=== PATIENT | female | born 1970 | race Caucasian/White ===

== ENCOUNTER 2018-02-14 09:26 | Emergency (ER) | payer OTHER ==
[~2018-02-14] VITALS: Ht 167.6 cm; Wt 147.4 kg
[~2018-02-14 09:26] MED LIST: CYMBALTA20 MG PO; FLEXERIL PO; NORCO 5-325 TA1 EACH PO; PROPRANOLOL 1010 M1 PO; SYNTHROID25 MCG PO; TRAMADOL 50 MG50 MG PO; XANAX 0.5 MG0.5 MG PO
[2018-02-14] MEDS ORDERED: DIOVAN 80 MG TA80 M1 PO (09:33)
[2018-02-14 09:52] LABS: URINE BILIRUBIN NEGATIVE (Negative); URINE BLOOD NEGATIVE (Negative); URINE CLARITY CLEAR; URINE COLOR YELLOW; URINE GLUCOSE-RANDOM NEGATIVE (Negative); URINE KETONES NEGATIVE (Negative); URINE LEUKOCYTES-REFLEX NEGATIVE (Negative); URINE NITRITE-REFLEX NEGATIVE (Negative); URINE PROTEIN NEGATIVE (Negative); URINE UROBILINOGEN 0.2 E.U./dl (0.2-1.0)
[2018-02-14 10:09] LABS: ABSOLUTE BASOPHILS 0.1 thou/uL (0.0-0.2); ABSOLUTE EOSINOPHILS 0.3 thou/uL (0.0-0.7); ABSOLUTE LYMPHOCYTES 3.1 thou/uL (0.8-5.3); ABSOLUTE MONOCYTES 0.4 thou/uL (0.0-1.2); ABSOLUTE NEUTROPHILS 5.6 thou/uL (1.6-8.1); BASOPHILS 1.4 %; EOSINOPHILS 2.6 %; HEMOGLOBIN 13.4 gm/dL (12.0-15.0); LYMPHOCYTES 32.4 %; MCH 27.6 pg (26.0-34.0); MCHC 33.4 g/dL (28.0-37.0); MCV 82.5 fL (80.0-100.0); MONOCYTES 4.7 %; MPV 7.1 fl. (7.2-11.1); NUCLEATED RBCS 0 /100WBC; PLATELET COUNT* 421 thou/uL (150-400); POLYS 58.9 %; RBC 4.86 mil/uL (4.20-5.00); WBC 9.5 thou/uL (4.0-11.0)
[2018-02-14 10:17] LABS: APTT 30.3 Seconds (25.0-31.3)
[2018-02-14 10:26] LABS: ANION GAP 4 mmol/L (7-16); BUN 14 mg/dL (7-18); CALCIUM 8.9 mg/dL (8.5-10.1); CHLORIDE 104 mmol/L (98-107); CO2 33 mmol/L (21-32); CREATININE 0.9 mg/dL (0.6-1.3); GLUCOSE 127 mg/dL (70-99); POTASSIUM 4.7 mmol/L (3.5-5.1); SODIUM 141 mmol/L (136-145)
[2018-02-14 10:37] LABS: ALBUMIN 3.1 g/dL (3.4-5.0); ALKALINE PHOSPHATASE 97 U/L (46-116); NT-PRO BRAIN NAT PEPTIDE 21 pg/mL (<300); SGOT 36 U/L (15-37); SGPT 39 U/L (30-65); TOTAL BILIRUBIN 0.2 mg/dL (<0.1-1.0); TOTAL PROTEIN 7.8 g/dL (6.4-8.2); TROPONIN-I LEVEL <0.06 ng/mL (<0.06)
[2018-02-14 10:47] VITALS: BP 144/96
--- NOTE | 2018-02-14 15:46 | EKG ---
[place] [address] ELECTROCARDIOGRAM REPORT Name: HUNTER MARIE Room: [facility]#: [id number] Admission: 02/14/18 Attend Phys: Discharge: 02/14/18 Date of : 74 Report #: [id number] THIS REPORT FOR: //name// 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 : 1970 Requested By: Lonnie Wade Order Number: [id number] MD: Nino Cates Measurements Intervals [place] Rate: 71 P: 32 [place]: 147 QRS: 8 QRSD: 113 T: 30 QT: 403 QTc: 438 Interpretive Statements Sinus rhythm Borderline intraventricular conduction delay Abnormal R-wave progression, early transition Abnormal T, consider ischemia, anterior leads Compared to ECG 09/11/2017 10:37:14 no change Electronically Signed On 02-14-2018 15:46:49 CDT by Nino Cates [email or web address] <ELECTRONICALLY SIGNED> By: Nino Cates MD, [facility] 02/14/18 1546 0936 0936 Nino Cates MD, [facility] /EPI
== END 2018-02-14 10:48 | disposition home or self-care (01) ==
LOC: M.ERS 09:26
PROVIDERS: Family Medicine
DX: I10 Essential (primary) hypertension (principal); F41.9 Anxiety disorder, unspecified; F32.9 Major depressive disorder, single episode, unspecified; Z90.89 Acquired absence of other organs; Z90.49 Acquired absence of other specified parts of digestive tract

== ENCOUNTER 2018-07-20 18:05 | Emergency (ER) | payer OTHER ==
[~2018-07-20] VITALS: Ht 167.6 cm; Wt 141.5 kg
[~2018-07-20 18:05] MED LIST changes: +DIOVAN 80 MG TA80 M1 PO
[2018-07-20] MEDS ORDERED: NORVASC5 MG PO (18:19)
[2018-07-20] MEDS ORDERED: PROZAC10 MG PO (18:20)
[2018-07-20] MEDS ORDERED: OMEPRAZOLE 20 M20 M1 PO (18:20)
[2018-07-20 18:23] LABS: URINE BILIRUBIN NEGATIVE (Negative); URINE BLOOD NEGATIVE (Negative); URINE CLARITY CLEAR; URINE COLOR YELLOW; URINE GLUCOSE-RANDOM NEGATIVE (Negative); URINE KETONES NEGATIVE (Negative); URINE LEUKOCYTES-REFLEX NEGATIVE (Negative); URINE NITRITE-REFLEX NEGATIVE (Negative); URINE PROTEIN NEGATIVE (Negative); URINE SPECIFIC GRAVITY <= 1.005 (1.005-1.030); URINE UROBILINOGEN 0.2 E.U./dl (0.2-1.0)
[2018-07-20 18:35] LABS: ABSOLUTE BASOPHILS 0.2 thou/uL (0.0-0.2); ABSOLUTE EOSINOPHILS 0.3 thou/uL (0.0-0.7); ABSOLUTE LYMPHOCYTES 4.9 thou/uL (0.8-5.3); ABSOLUTE MONOCYTES 0.5 thou/uL (0.0-1.2); BASOPHILS 1.5 %; EOSINOPHILS 2.7 %; HEMOGLOBIN 13.2 gm/dL (12.0-15.0); LYMPHOCYTES 41.5 %; MCH 27.5 pg (26.0-34.0); MCV 83.4 fL (80.0-100.0); MPV 6.8 fl. (7.2-11.1); NUCLEATED RBCS 0 /100WBC; PLATELET COUNT* 512 thou/uL (150-400); POLYS 50.3 %; WBC 11.9 thou/uL (4.0-11.0)
[2018-07-20 18:40] LABS: CALCIUM 8.3 mg/dL (8.5-10.1); CREATININE 0.8 mg/dL (0.6-1.3); POTASSIUM 3.8 mmol/L (3.5-5.1)
[2018-07-20 18:45] LABS: TOTAL BILIRUBIN 0.2 mg/dL (<0.1-1.0); TOTAL PROTEIN 7.9 g/dL (6.4-8.2)
[2018-07-20] MEDS ORDERED: NORCO 5-325 TA1 EACH PO (19:28)
[2018-07-20] MEDS ORDERED: CYCLOBENZAPRINE10 MG PO (19:29)
[2018-07-20 19:48] VITALS: BP 170/102
== END 2018-07-20 19:49 | disposition home or self-care (01) ==
LOC: M.ERS 18:05
PROVIDERS: Nurse Practitioner Family
DX: M54.5 Low back pain (principal); R10.9 Unspecified abdominal pain; I10 Essential (primary) hypertension; F41.9 Anxiety disorder, unspecified; F32.9 Major depressive disorder, single episode, unspecified; Z90.49 Acquired absence of other specified parts of digestive tract; Z90.710 Acquired absence of both cervix and uterus; Z91.013 Allergy to seafood

== ENCOUNTER → 2018-10-25 | Day surgery (SDC) | payer OTHER ==
[~2018-10-25] MED LIST changes: +CYCLOBENZAPRINE10 MG PO; +NORVASC5 MG PO; +OMEPRAZOLE 20 M20 M1 PO; +PROZAC10 MG PO
--- NOTE | ~2018-10-25 | PROC ---
[address] [address] PROCEDURE REPORT Name: HUNTER MARIE Room: [facility].#: [id number] Admission: 10/25/18 Attend Phys: Lydia Dao MD Discharge: Date of : 74 Report #: [id number] THIS REPORT FOR: //name// For GI report, please see the Provation report in Perceptive 7. By: 0637Medical Records Staff SANJU /EDINSON
[2018-10-25 09:20] LABS: MCH 27.8 pg (26.0-34.0); MCHC 33.3 g/dL (28.0-37.0); MCV 83.5 fL (80.0-100.0); MPV 7.1 fl. (7.2-11.1); RBC 4.68 mil/uL (4.20-5.00); RDW-CV 15.6 % (10.5-14.5); WBC 10.5 thou/uL (4.0-11.0)
[2018-10-25 09:24] LABS: CALCIUM 8.9 mg/dL (8.5-10.1); CREATININE 0.9 mg/dL (0.6-1.3); POTASSIUM 3.3 mmol/L (3.5-5.1)
--- NOTE | 2018-10-25 15:48 | EKG ---
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: : 1970 Requested By: Lydia Dao Order Number: [id number] Nuno MD: Nino Cates Measurements Intervals [place] Rate: 78 P: 35 [place]: 161 QRS: 6 QRSD: 117 T: 16 QT: 400 QTc: 456 Interpretive Statements Sinus rhythm Probable left ventricular hypertrophy Abnormal T, consider ischemia, anterior leads Compared to ECG 02/14/2018 09:36:14 No significant changes Electronically Signed On 10-25-2018 15:48:19 SYSTEMS SUPPORT ENGINEER by Nino Cates [email or web address] <ELECTRONICALLY SIGNED> By: Nino Cates MD, [facility] 10/25/18 1548 0 0 Nino Cates MD, FAC /EPI
--- NOTE | 2018-10-30 11:08 | PATH ---
[address] [address] PATHOLOGY RPT PROCEDURE Name: MILA TO Room: [facility].#: [id number] Admission: 10/25/18 Date of : 74 Discharge: Report #: [id number] Path Case #: [id number] [facility] Accession Number: [id number] . 01 Material submitted: . PART A: ANTRAL BIOPSY PART B: RECTAL SIGMOID POLYP . 01 Clinical history: . Pre-OP DX: History of breast cancer, upper quadrant pain, bright red blood per Post-OP DX: Rectum, dysphasis, vomiting . 02 Diagnosis: A. "Antral biopsy for gastritis", biopsy: - Gastric antral-type mucosa with mild reactive changes and mild chronic inflammation. - Negative H. pylori immunohistochemical stain (block A1); control reacted appropriately. . B. "Rectal/sigmoid polyp", biopsy: - Tubular adenoma; no high grade dysplasia. . (CLW:osmany; 10/26/2018) MBR/10/26/2018 . 02 Comment: A properly controlled immunohistochemical stain was performed. . AE1/AE3 (block A1): no abnormal staining . Clinical and endoscopic correlation is recommended. . 02 Electronically signed: . Gloria Daniel MD, Pathologist NPI- [id number] . 01 Gross description: . A. Received in formalin labeled "Mila To, antral biopsy for gastritis," are 3 segments of eastman soft tissue measuring 0.6 x 0.4 x 0.1 cm in aggregate dimensions and ranging from 0.2 to 0.3 cm in maximum dimension. The specimen is submitted entirely in cassette A1. . B. Received in formalin labeled "Mila To, rectal/sigmoid polyp," is a single segment of eastman soft tissue measuring 0.4 cm in maximum dimension. The specimen is entirely submitted in cassette B1. (TSD; 10/25/2018) TOB/[place] [address] PATHOLOGY RPT PROCEDURE Name: MILA TO PRASHANTH Room: [facility].#: [id number] Admission: 10/25/18 Date of : 74 Discharge: Report #: [id number] Path Case #: [id number] . 02 Pathologist provided ICD-10: K29.50, D12.7 . 02 CPT . 144953, 088951, O27654, X71767 Specimen Comment: A courtesy copy of this report has been sent to Specimen Comment: [phone], . Specimen Comment: Report sent to / DR THOMAS Specimen Comment: A duplicate report has been generated due to demographic updates. Performed at: 01 [facility] [address] [id number] MD Aureliano Vinson MD Phone: [phone] Performed at: 02 [facility] [address] [id number] MD João Graf MD Phone: [phone]
== END | disposition home or self-care (01) ==
LOC: M.SUR 06:46
PROVIDERS: Internal Medicine Gastroenterology
DX: D12.7 Benign neoplasm of rectosigmoid junction (principal); K29.50 Unspecified chronic gastritis without bleeding; K44.9 Diaphragmatic hernia without obstruction or gangrene; K64.8 Other hemorrhoids; I10 Essential (primary) hypertension; M79.7 Fibromyalgia; K21.9 Gastro-esophageal reflux disease without esophagitis; F41.9 Anxiety disorder, unspecified; F32.9 Major depressive disorder, single episode, unspecified; Z90.49 Acquired absence of other specified parts of digestive tract; Z98.890 Other specified postprocedural states; Z79.899 Other long term (current) drug therapy

== ENCOUNTER → 2020-08-28 | Outpatient (CLI) | payer MEDICARE, OTHER ==
[~2020-08-28] MED LIST changes: +IBU600 MG PO; +NORCO 5-325 TA1 EAC2 PO
== END ==
LOC: M.ULTRA 07:59
PROVIDERS: ATTEND Family Medicine
DX: R22.0 Localized swelling, mass and lump, head (principal)

== ENCOUNTER 2020-09-02 16:57 | Emergency (ER) | payer MEDICARE, OTHER ==
[~2020-09-02] VITALS: Ht 167.6 cm; Wt 147.4 kg
[~2020-09-02 16:57] MED LIST changes: -IBU600 MG PO; -NORCO 5-325 TA1 EAC2 PO
[2020-09-02] MEDS ORDERED: IBU600 MG PO (18:09)
[2020-09-02] MEDS ORDERED: NORCO 5-325 TA1 EAC2 PO (18:09)
[2020-09-02 18:21] VITALS: BP 162/63
== END 2020-09-02 18:21 | disposition home or self-care (01) ==
LOC: M.ERS 16:57
DX: S63.681A Other sprain of right thumb, initial encounter (principal); I10 Essential (primary) hypertension; M79.7 Fibromyalgia; Z90.89 Acquired absence of other organs; Z90.49 Acquired absence of other specified parts of digestive tract; Z90.710 Acquired absence of both cervix and uterus; Z91.013 Allergy to seafood; W18.39XA Other fall on same level, initial encounter; Y93.89 Activity, other specified; Y92.89 Other specified places as the place of occurrence of the external cause; Y99.8 Other external cause status

== ENCOUNTER → 2020-09-11 | Outpatient (CLI) | payer MEDICARE, OTHER ==
[~2020-09-11] MED LIST changes: +IBU600 MG PO; +NORCO 5-325 TA1 EAC2 PO
== END ==
LOC: M.CT 08:31
PROVIDERS: ATTEND Family Medicine
DX: J84.10 Pulmonary fibrosis, unspecified (principal); R91.1 Solitary pulmonary nodule; I25.10 Atherosclerotic heart disease of native coronary artery without angina pectoris; J98.4 Other disorders of lung; K76.0 Fatty (change of) liver, not elsewhere classified

== ENCOUNTER 2020-10-23 11:06 | Emergency (ER) | payer MEDICARE, OTHER ==
[~2020-10-23] VITALS: Ht 167.6 cm; Wt 147.4 kg
[2020-10-23] MEDS ORDERED: LIPITOR 10 MG10 M1 PO (11:22)
[2020-10-23] MEDS ORDERED: OXYBUTYNIN 5 MG5 M2 PO (11:22)
[2020-10-23 11:23] LABS: URINE BILIRUBIN NEGATIVE (Negative); URINE BLOOD 3+ (Negative); URINE CLARITY CLOUDY; URINE COLOR STRAW; URINE GLUCOSE-RANDOM NEGATIVE (Negative); URINE KETONES NEGATIVE (Negative); URINE PROTEIN 2+ (Negative); URINE UROBILINOGEN 0.2 E.U./dl (0.2-1.0)
[2020-10-23 11:26] LABS: URINE LEUKOCYTES-REFLEX 3+ (Negative); URINE NITRITE-REFLEX POSITIVE (Negative)
[2020-10-23 11:30] LABS: BACTERIA-REFLEX >30 Many /HPF (None Seen); CASTS None Seen /LPF (None Seen); CRYSTALS None Seen /LPF (None Seen); SQUAMOUS 4-10 Moderate /LPF (0-3); TRANSITIONAL EPITHEL CELL 0-3 Few /LPF (None Seen); URINE RBC >20 Many /HPF (0-2); URINE WBC-REFLEX >25 Many /HPF (0-5)
[2020-10-23 11:34] LABS: ABSOLUTE EOSINOPHILS 0.3 thou/uL (0.0-0.7); ABSOLUTE LYMPHOCYTES 4.5 thou/uL (0.8-5.3); ABSOLUTE MONOCYTES 0.7 thou/uL (0.0-1.2); ABSOLUTE NEUTROPHILS 10.7 thou/uL (1.6-8.1); BASOPHILS 0.2 %; HEMATOCRIT 39.3 % (37.0-47.0); HEMOGLOBIN 12.5 gm/dL (12.0-15.0); LYMPHOCYTES 27.6 %; MCH 25.4 pg (26.0-34.0); MCHC 31.9 g/dL (28.0-37.0); MCV 79.7 fL (80.0-100.0); MONOCYTES 4.2 %; MPV 6.6 fl. (7.2-11.1); NUCLEATED RBCS 0 /100WBC; PLATELET COUNT* 520 thou/uL (150-400); RBC 4.93 mil/uL (4.20-5.00); RDW-CV 17.4 % (10.5-14.5); WBC 16.2 thou/uL (4.0-11.0)
[2020-10-23 11:41] LABS: CALCIUM 8.3 mg/dL (8.5-10.1); POTASSIUM 4.2 mmol/L (3.5-5.1)
[2020-10-23 11:45] LABS: TOTAL BILIRUBIN 0.7 mg/dL (<0.1-1.0)
[2020-10-23] MEDS ORDERED: MACROBID 100 M100 M1 PO (11:50)
[2020-10-23] MEDS ORDERED: PYRIDIUM200 MG PO (11:50)
[2020-10-23] MEDS ORDERED: NORCO 5-325 TA1 EAC2 PO (12:00)
[2020-10-23 12:10] VITALS: BP 128/41
== END 2020-10-23 12:10 | disposition home or self-care (01) ==
LOC: M.ERS 11:06
PROVIDERS: Family Medicine
DX: N39.0 Urinary tract infection, site not specified (principal); I10 Essential (primary) hypertension; M79.7 Fibromyalgia; Z90.710 Acquired absence of both cervix and uterus; Z91.013 Allergy to seafood; Z90.89 Acquired absence of other organs; Z90.49 Acquired absence of other specified parts of digestive tract

== ENCOUNTER → 2021-01-11 | Outpatient (CLI) | payer MEDICARE, OTHER ==
[~2021-01-11] MED LIST changes: +LIPITOR 10 MG10 M1 PO; +MACROBID 100 M100 M1 PO; +OXYBUTYNIN 5 MG5 M2 PO; +PYRIDIUM200 MG PO
== END ==
LOC: M.CT 01-07 08:30
PROVIDERS: ATTEND Family Medicine
DX: R91.8 Other nonspecific abnormal finding of lung field (principal)

== ENCOUNTER → 2021-08-03 | Outpatient (CLI) | payer MEDICARE, OTHER | LOC: M.CT 07-21 14:00 | PROVIDERS: ATTEND Family Medicine | DX: J98.4 Other disorders of lung (principal); R91.8 Other nonspecific abnormal finding of lung field; M47.814 Spondylosis without myelopathy or radiculopathy, thoracic region; Z90.49 Acquired absence of other specified parts of digestive tract ==

== ENCOUNTER → 2021-11-09 | Day surgery (SDC) | payer MEDICARE, OTHER ==
[~2021-11-09] MED LIST changes: +PROZAC20 M1 PO; +XANAX 0.25 MG0.25 MG PO
--- NOTE | ~2021-11-09 | PROC ---
[address] [address] PROCEDURE REPORT Name: HUNTER MARIE Room: [facility].#: [id number] Admission: 11/09/21 Attend Phys: Thee Parker DO Discharge: Date of : 74 Report #: [id number] THIS REPORT FOR: cc: Yaakov Henning Vincent R. DO TAMRA,Medical Records Staff ~ For GI report, please see the Provation report in Perceptive 7 content. By: 1408Medical Records Staff SANJU /EDINSON
--- NOTE | 2021-11-09 15:41 | EKG ---
[place] [address] ELECTROCARDIOGRAM REPORT Name: KELLI MARIEAlpesh MARTINEZPRASHANTH Room: [facility]#: [id number] Admission: 11/09/21 Attend Phys: Thee Parker, Discharge: Date of : 74 Date of Service: 11/09/21 [facility] [place] [facility] [place] Report #: [id number] THIS REPORT FOR: //name// [facility] Test Date: 2021-11-09 Test Time: 10:02:30 Pat Name: HUNTER MARIE Department: Room: Gender: F [place]: SCELMER : 1970 Requested By: Thee Parker Order Number: [id number] Reading MD: Johan Antunez Measurements Intervals [place] Rate: 68 P: 39 [place]: 163 QRS: 14 QRSD: 113 T: 27 QT: 410 QTc: 437 Interpretive Statements Sinus rhythm Anteroseptal infarct, age indeterminate cannot be excluded Baseline wander in lead(s) V4 Compared to ECG 10/25/2018 09:11:17 Myocardial infarct finding now possible T-wave abnormality has diminished Possible ischemia no longer present Electronically Signed On 11-09-2021 15:41:25 AEROBICS INSTRUCTOR by Johan Antunez [email or web address] <ELECTRONICALLY SIGNED> By: Johan Antunez MD, FACC 11/09/21 1541 1002 1002 Johan Antunez MD, FACC /EPI
--- NOTE | 2021-11-11 10:07 | PATH ---
[facility] [place] [address] [place] [address] PATHOLOGY RPT PROCEDURE Name: MILA TO Room: [facility].#: [id number] Admission: 11/09/21 Date of : 74 Discharge: Report #: [id number] Path Case #: [id number] [facility] Accession Number: [id number] . 01 Material submitted: . PART A: esophagus - ESOPHAGEAL BIOPSY AT 35 CM FOR DYSPHAGIA PART B: esophagus - ESOPHAGEAL BIOPSY AT 30 CM FOR DYSPHAGIA . 01 Clinical history: . EGD IN OR DYSPHAGIA . 02 Diagnosis: A. and B. Esophageal biopsy at 35 cm and at 30 cm: - Mild chronic esophagitis typical of reflux. See comment. (NADIYA:sunday; 11/10/2021) S 11/10/2021 1435 Local . 02 Comment: Eosinophils average less than 2/HPF in both specimens. (NADIYA:[facility]; 11/10/2021) . 02 Electronically signed: . Armando Rod MD, Pathologist NPI- [id number] . 01 Gross description: . A. The specimen is received in formalin, labeled "Mila To, esophageal biopsy at 35 cm". Received are 2 fragments of pale eastman tissue both measuring 0.3 cm in maximum dimensions. The specimen is entirely submitted in cassette A1. . B. The specimen is received in formalin, labeled "Mila To, esophageal biopsy at 30 cm". Received are 2 segments of pale eastman tissue measuring 0.2 and 0.5 cm in maximum dimensions. The specimen is entirely submitted in cassette B1. ([facility]; 11/09/2021) NRI/NRI 11/09/2021 2113 Local . 02 Pathologist provided ICD-10: K20.90 . 02 CPT . 558088, 774401 Specimen Comment: A courtesy copy of this report has been sent to [phone] Specimen Comment: [phone] Specimen Comment: Report sent to / [place] [address] PATHOLOGY RPT PROCEDURE Name: MILA TO PRASHANTH Room: [facility]..#: [id number] Admission: 11/09/21 Date of : 74 Discharge: Report #: [id number] Path Case #: [id number] Specimen Comment: A duplicate report has been generated due to demographic updates. Performed at: 01 [facility] [id number] [facility] [address], [place], [place] [id number] MD Oliver Swenson MD Phone: [phone] Performed at: [address] [facility] [address] [place], [place], [place] [id number] MD Armando Rod MD Phone: [phone]
== END | disposition home or self-care (01) ==
LOC: M.SUR 05:32
PROVIDERS: ATTEND Internal Medicine Gastroenterology
DX: R13.14 Dysphagia, pharyngoesophageal phase (principal); K22.2 Esophageal obstruction; K21.00 Gastro-esophageal reflux disease with esophagitis, without bleeding; K44.9 Diaphragmatic hernia without obstruction or gangrene; I10 Essential (primary) hypertension; F32.9 Major depressive disorder, single episode, unspecified; M79.7 Fibromyalgia; Z98.890 Other specified postprocedural states; Z79.899 Other long term (current) drug therapy; Z90.710 Acquired absence of both cervix and uterus; Z20.822 Contact with and (suspected) exposure to COVID-19

== ENCOUNTER 2021-12-06 10:22 | Emergency (ER) | payer MEDICARE, OTHER ==
[~2021-12-06] VITALS: Ht 167.6 cm; Wt 147.4 kg
[2021-12-06] MEDS ORDERED: OMEPRAZOLE40 MG PO (10:47)
[2021-12-06 11:35] LABS: ABSOLUTE BASOPHILS 0.2 thou/uL (0.0-0.2); ABSOLUTE EOSINOPHILS 0.2 thou/uL (0.0-0.7); ABSOLUTE LYMPHOCYTES 3.6 thou/uL (0.8-5.3); ABSOLUTE MONOCYTES 0.5 thou/uL (0.0-1.2); ABSOLUTE NEUTROPHILS 5.3 thou/uL (1.6-8.1); BASOPHILS 1.6 %; EOSINOPHILS 2.5 %; HEMATOCRIT 43.5 % (37.0-47.0); HEMOGLOBIN 14.4 gm/dL (12.0-15.0); LYMPHOCYTES 36.9 %; MCH 27.7 pg (26.0-34.0); MCV 83.7 fL (80.0-100.0); MONOCYTES 5.4 %; MPV 6.6 fl. (7.2-11.1); NUCLEATED RBCS 0 /100WBC; PLATELET COUNT* 443 thou/uL (150-400); POLYS 53.6 %; RDW-CV 15.1 % (10.5-14.5); WBC 9.8 thou/uL (4.0-11.0)
[2021-12-06 12:07] LABS: ALBUMIN 3.1 g/dL (3.4-5.0)
[2021-12-06 13:15] LABS: MAGNESIUM 2.3 mg/dL (1.8-2.4); TOTAL BILIRUBIN 0.3 mg/dL (<0.1-1.0); TOTAL PROTEIN 7.7 g/dL (6.4-8.2)
[2021-12-06] MEDS ORDERED: CARAFATE1 GM PO (15:53)
[2021-12-06] MEDS ORDERED: ZOFRAN ODT4 MG DISSOLVE (15:53)
[2021-12-06 16:11] VITALS: BP 156/84
--- NOTE | 2021-12-07 10:02 | EKG ---
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 12/06/21 1411 1055 1055 Johan Antunez MD, [facility] /EPI
== END 2021-12-06 16:14 | disposition home or self-care (01) ==
LOC: M.ERS 10:22
PROVIDERS: Emergency Medicine Emergency Medical Services
DX: R07.89 Other chest pain (principal); R10.13 Epigastric pain; R11.2 Nausea with vomiting, unspecified; R00.2 Palpitations; I10 Essential (primary) hypertension; F41.9 Anxiety disorder, unspecified; F32.9 Major depressive disorder, single episode, unspecified; M79.7 Fibromyalgia; Z90.89 Acquired absence of other organs; Z90.49 Acquired absence of other specified parts of digestive tract; Z90.710 Acquired absence of both cervix and uterus; Z79.899 Other long term (current) drug therapy; Z91.048 Other nonmedicinal substance allergy status; Z91.013 Allergy to seafood